=== PATIENT | female | born 1995 | race American Indian/Alaskan Native ===

== ENCOUNTER 2018-11-02 23:21 | Emergency (ER) | payer SELFPAY ==
[2018-11-02 23:29] VITALS: BP 111/70
--- NOTE | 2018-11-03 03:31 | Emergency Department Report ---
- General Chief Complaint: Upper Respiratory Infection Stated Complaint: XOCHITL/DISCOMFORT IN EARS Time Seen by Provider: 11/03/18 03:25 Source: patient Mode of arrival: Ambulatory Limitations: No Limitations - History of Present Illness Initial Comments: Patient is a 23-year-old female who presents for sinus congestion history of same taken [id number] nasal next histamine was followed by ENT states medications not working is no fever no chills is clear rhinorrhea and clear postnasal drip there is no shortness of breath no XOCHITL no wheezing no stridor no chest pain no nausea vomiting no fever or chills MD Complaint: nasal congestion, sinus pain Onset/Timin -: week(s) Severity: moderate Severity scale (0 -10): 3 Quality: other (pressure ) Consistency: intermittent Improves With: rest Worsens With: activity Associated Symptoms: rhinorrhea, nasal congestion, cough. denies: chills, headache, chest pain, shortness of breath, nausea, vomiting, rash - Related Data Previous Rx's Medication Instructions Recorded Last Taken Type Oxymetazoline 0.05% [Vicks Sinex] 2 spray NS BID PRN #1 bottle 11/03/18 Unknown Rx diphenhydrAMINE [Benadryl CAP] 25 mg PO Q8HR PRN #30 capsule 11/03/18 Unknown Rx Allergies Allergy/AdvReac Type Severity Reaction Status Date / Time No Known Allergies Allergy Verified 11/02/18 23:25 ED Review of Systems ROS: Stated complaint: XOCHITL/DISCOMFORT IN EARS Other details as noted in HPI Constitutional: denies: chills, fever Eyes: denies: eye pain, eye discharge, vision change ENT: congestion. denies: ear pain, throat pain Respiratory: cough. denies: shortness of breath, wheezing Cardiovascular: denies: chest pain, palpitations Endocrine: no symptoms reported Gastrointestinal: denies: abdominal pain, nausea, diarrhea Genitourinary: denies: urgency, dysuria, discharge Musculoskeletal: denies: back pain, joint swelling, arthralgia Skin: denies: rash, lesions Neurological: denies: headache, weakness, paresthesias Psychiatric: denies: anxiety, depression Hematological/Lymphatic: denies: easy bleeding, easy bruising ED Past Medical Hx - Past Medical History Previous Medical History?: Yes Additional medical history: nonallergic rhinotitis. rebound congestion - Surgical History Past Surgical History?: No - Social History Smoking Status: Never Smoker Substance Use Type: None - Medications Home Medications: Home Medications Medication Instructions Recorded Confirmed Last Taken Type Oxymetazoline 0.05% [Vicks Sinex] 2 spray NS BID PRN #1 bottle 11/03/18 Unknown Rx diphenhydrAMINE [Benadryl CAP] 25 mg PO Q8HR PRN #30 capsule 11/03/18 Unknown Rx ED Physical Exam - General Limitations: No Limitations General appearance: alert, in no apparent distress - Head Head exam: Present: atraumatic, normocephalic - Eye Eye exam: Present: normal appearance, PERRL, EOMI Pupils: Present: normal accommodation - ENT ENT exam: Present: mucous membranes moist, TM's normal bilaterally, normal external ear exam - Expanded ENT Exam Expanded Ear exam: Present: normal external inspection Throat exam: Positive: normal inspection, other (clear post nasal drip , bilat turbinater erythema clear rhinnorhea ). Negative: tonsillar erythema, tonsillomegaly, tonsillar exudate, R peritonsillar mass, L peritonsillar mass - Neck Neck exam: Present: normal inspection, full ROM. Absent: tenderness, meningismus, lymphadenopathy, thyromegaly - Respiratory Respiratory exam: Present: normal lung sounds bilaterally. Absent: respiratory distress, wheezes, stridor, chest wall tenderness - Cardiovascular Cardiovascular Exam: Present: regular rate, normal rhythm, normal heart sounds. Absent: systolic murmur, diastolic murmur, rubs, gallop - GI/Abdominal GI/Abdominal exam: Present: soft, normal bowel sounds. Absent: distended, tenderness, bruit, hernia - Rectal Rectal exam: Present: deferred - Extremities Exam Extremities exam: Present: normal inspection, full ROM, normal capillary refill. Absent: calf tenderness - Back Exam Back exam: Present: normal inspection, full ROM. Absent: tenderness, CVA te nderness (R), CVA tenderness (L), rash noted - Neurological Exam Neurological exam: Present: alert, oriented X3, CN II-XII intact, normal gait, reflexes normal - Psychiatric Psychiatric exam: Present: normal affect, normal mood - Skin Skin exam: Present: warm, dry, intact, normal color. Absent: rash ED Course Vital Signs 11/02/18 23:28 Temperature 98.7 F Pulse Rate 90 Respiratory 16 Rate Blood Pressure 111/70 [Right] O2 Sat by Pulse 99 Oximetry ED Medical Decision Making - Medical Decision Making this is rhinitis no fever no chills plan attempt lissy pickett hold nosonex follow up with ent in 2 days return to ed if symptoms worsen pt verbalized agreement and understanding of discharge plan. Critical care attestation.: If time is entered above; I have spent that time in minutes in the direct care of this critically ill patient, excluding procedure time. ED Disposition Clinical Impression: URI (upper respiratory infection) Qualifiers: URI type: unspecified viral URI Qualified Code(s): J06.9 - Acute upper respiratory infection, unspecified Disposition: DC- TO HOME OR SELFCARE Is pt being admited?: No Does the pt Need Aspirin: No Condition: Stable Instructions: Upper Respiratory Infection (ED) Prescriptions: diphenhydrAMINE [Benadryl CAP] 25 mg PO Q8HR PRN #30 capsule PRN Reason: sinus congestion Oxymetazoline 0.05% [Vicks Sinex] 2 spray NS BID PRN #1 bottle PRN Reason: nasas congestion Referrals: ASHLEY VORA MD [Staff Physician] - 3-5 Days Forms: Work/School Release Form(ED)
== END 2018-11-03 04:09 | disposition home or self-care (01) ==
LOC: ED 23:21
DX: J06.9 Acute upper respiratory infection, unspecified (principal)